=== PATIENT | male | born 1950 | race Caucasian/White ===

== ENCOUNTER 2018-03-31 07:05 | Day surgery (SDC) | payer OTHER ==
[~2018-03-31] VITALS: Ht 167.6 cm; Wt 105.9 kg
[2018-03-31] MEDS ORDERED: IOHEXOL 300 MG/ML 50 ML BTL (for RAD DIAG) IT ONE (07:06)
[2018-03-31 07:51] VITALS: BP 133/78; PULSE 66; RESP 18; TEMP 97.7; O2SAT 95
[2018-03-31] MEDS ORDERED: FISH1000 PO (08:40)
[2018-03-31] MEDS ORDERED: VITA1000 PO (08:40)
[2018-03-31] MEDS ORDERED: METF500T PO (08:40)
[2018-03-31] MEDS ORDERED: TAMS0.4C4 PO (08:40)
[2018-03-31] MEDS ORDERED: LANTUS2P SQ (08:40)
[2018-03-31] MEDS ORDERED: LEVO100T5 PO (08:40)
[2018-03-31] MEDS ORDERED: LISI10TA3 PO (08:40)
[2018-03-31] MEDS ORDERED: NOVONP2 SQ (08:41)
[2018-03-31 09:15] LABS: AUTOMATED NEUTROPHIL # 2.7 TH/MM3 (1.8-7.7); BASOPHIL % 0.6 % (0.0-2.0); EOSINOPHIL # 0.1 TH/MM3 (0-0.4); EOSINOPHIL % 1.7 % (0.0-4.0); HEMATOCRIT 42.1 % (39.0-51.0); HEMOGLOBIN 14.2 GM/DL (13.0-17.0); LYMPH % 38.7 % (9.0-44.0); LYMPHOCYTE # 2.1 TH/MM3 (1.0-4.8); MEAN CELL VOLUME 88.3 FL (80.0-100.0); MEAN CORPUSCULAR HEMOGLOBIN 29.7 PG (27.0-34.0); MEAN CORPUSCULAR HGB CONC 33.6 % (32.0-36.0); MEAN PLATELET VOLUME 8.5 FL (7.0-11.0); MONO % 9.2 % (0.0-8.0); MONOCYTE # 0.5 TH/MM3 (0-0.9); NEUT % 49.8 % (16.0-70.0); PLATELET COUNT 173 TH/MM3 (150-450); RED BLOOD COUNT 4.77 MIL/MM3 (4.50-5.90); RED CELL DISTRIBUTION WIDTH 14.3 % (11.6-17.2); WHITE BLOOD COUNT 5.3 TH/MM3 (4.0-11.0)
[2018-03-31 09:29] LABS: BICARBONATE 23.9 MEQ/L (21.0-32.0); CALCIUM 9.5 MG/DL (8.5-10.1); CREATININE 1.38 MG/DL (0.60-1.30); PROTHROMBIN TIME - PATIENT 10.2 SEC (9.8-11.6)
[2018-03-31] MEDS ORDERED: DIAZEPAM 5 MG TAB PO SCH (10:00)
[2018-03-31] MEDS ORDERED: LACTATED RINGER'S 1000 ML INJ 1,000 ML IV SCH ×2 (10:00→11:05)
[2018-03-31] MEDS ORDERED: LORazepam 2 MG/ML VIAL IV PUSH ONE (10:00)
--- NOTE | 2018-03-31 11:06 | PD.RAD ---
Post Procedure Progress Note Procedure Date: Mar 31, 2018 Supervising Radiologist: Anders Castro Proceduralist/Assist: Celso Freedman RT(R), Other Anesthesia: Local Plan of Activity Patient to Unit: [facility] Patient Condition: Good See PACS Report for procedural detail/treatment Anders Castro MD Mar 31, 2018 11:06
[2018-03-31 11:30] VITALS: BP 124/77; PULSE 50; RESP 16; RESP 18; TEMP 97.6; O2SAT 95
--- NOTE | 2018-03-31 11:52 | RADRPT ---
EXAM DATE: 03/31/2018 11:31 AM EDT AGE/SEX: 67 years / Male INDICATIONS: Post lumbar myelogram. CLINICAL DATA: This is the patient's initial encounter. Patient reports that signs and symptoms have been present for 1 day and indicates a pain score of 4/10. MEDICAL/SURGICAL HISTORY: Diabetes. None. RADIATION DOSE: 36.83 CTDI (mGy) COMPARISON: No prior exams available for comparison. CT of the lumbar spine was performed post myelogram. TECHNIQUE: Contiguous axial images were acquired with a multirow detector CT scanner without contras t. Multiplanar reconstructions in the sagittal and coronal plane were also performed. Using automate d exposure control and adjustment of the mA and/or kV according to patient size, radiation dose was k ept as low as reasonably achievable to obtain optimal diagnostic quality images. DICOM format image data is available electronically for review and comparison. FINDINGS: Sagittal and coronal reformatted images demonstrate adequate alignment of the lumbar vertebral bodies . There are desiccated, degenerated discs throughout. There is contrast throughout the thecal sac. The paraspinous soft tissues visualized are unremarkable. Axial imaging: T12/L1: The thecal space and foramina are adequate. There is osteophytic ridging from the anterior as pect of the vertebral endplates. L1/L2: There is degeneration of the disc with minimal disc bulge. The thecal space and foramina appea r adequate. The facet joints are intact. There is a large osteophytic spur projecting off the right s brooklynn of the endplates in the far lateral region. L2/L3: There is a degenerated disc with broad-based disc bulge and diffuse osteophytic ridging. There is mild facet arthritis bilaterally with degenerative facet and ligamentous hypertrophy. These kennedy es combine and result in a mild degree of spinal stenosis with moderate bilateral foraminal encroachm ent. L3-4: There is a desiccated, degenerated disc with broad-based disc bulge. There is mild facet arthri tis bilaterally with degenerative facet and ligamentous hypertrophy. There is disc protrusion evident projecting into the lateral recess and effacing the base of the foramina on the left. There is mild foraminal encroachment on the right. L4-5: There is a broad-based disc bulge and mild facet arthritis bilaterally. There is slight encroac hment of disc bulge on the lateral recess and base of the foramina. The residual thecal space is narr owed but adequate. L5-S1: The exam demonstrates a degenerated disc with minimal disc bulge and diffuse osteophytic ridgi ng. This is slightly eccentric towards the right. The residual thecal space and foramina appear adequ ate. There is mild facet arthritis bilaterally. CONCLUSION: 1. Moderate degenerative changes throughout the lumbar spine. The most significant abnormality is a sizable left-sided disc protrusion at the L3-4 level. 2. Individual levels are dictated in detail above. Electronically signed by: Ke Melchor MD 03/31/2018 11:50 AM EDT
--- NOTE | 2018-03-31 11:56 | RADRPT ---
EXAM DATE: 03/31/2018 11:37 AM EDT AGE/SEX: 67 years / Male INDICATIONS: Post cervical myelogram. CLINICAL DATA: This is the patient's initial encounter. Patient reports that signs and symptoms have been present for 1 day and indicates a pain score of 4/10. MEDICAL/SURGICAL HISTORY: Diabetes. None. RADIATION DOSE: 26.41 CTDI (mGy) COMPARISON: No prior exams available for comparison. TECHNIQUE: Contiguous axial images were obtained using helical multirow detector technique. The vol umetric data was post-processed with multiplanar reconstruction in oblique axial, sagittal, and coron al planes. Using automated exposure control and adjustment of the mA and/or kV according to patient s ize, radiation dose was kept as low as reasonably achievable to obtain optimal diagnostic quality karol ges. FINDINGS: Intrathecal contrast is seen. Vertebrae: Normal vertebral body height. Alignment: There is 2 mm of anterior subluxation of C2 on C3 otherwise the cervical vertebral bodies are normally aligned. C2-3: Again noted is the mild anterior subluxation of C2 on C3. This is thought to be secondary to f acet hypertrophy. Some degree of suspected fusion at the right facet joint. The right facet hypertrop hy causes minimal narrowing of the right neural foramina. The left neural foramina is patent. C3-4: The bony spinal canal is normal in size. The contrast is less dense anteriorly. There appears to be possible mild right lateral recess disc protrusion. There is mild facet hypertrophy. Mild anter ior osteophytes are seen. C4-5: There is mild asymmetric disc bulge being worse on the right. This causes a very mild impressi on on the anterior aspect of the thecal sac. There continues be CSF around the cord. The neural daniel gaurav are patent bilaterally. There is right facet hypertrophy. Anterior marginal osteophytes are seen. C5-6: The disc demonstrates decreased height. There is mild diffuse disc bulge and osteophytic ridgi ng and patient appears to be more focal central disc protrusion causing a moderate impression on the chest but the thecal sac. Minimal CSF seen around the cord. The cord does appear mildly indented cent rally. There is uncovertebral hypertrophy. There is mild narrowing of the neural foramina bilaterally from the uncovertebral hypertrophy. C6-7: The bony spinal canal is normal in size. No evidence of disc bulge or herniation. Mild margin al osteophytes are seen. There is bilateral uncovertebral hypertrophy. There is mild neural foraminal narrowing being worse on the left. Anterior marginal osteophytes are seen. C7-T1: The bony spinal canal is normal in size. The disc demonstrates decreased height. There is mi nimal disc bulge and osteophytic ridging without significant stenosis. There is mild facet hypertroph y. The neural foramina are bilaterally patent. CONCLUSION: 1. Moderate stenosis at the C5-C6 level caused by disc bulge and osteophytic ridging and a superimpo sed central disc protrusion. 2. Suspected mild right lateral recess disc protrusion at the C3-C4 level. 3. Mild anterior subluxation of C3 on C4. 4. Uncovertebral hypertrophy at the C5-C6 and C6-C7 levels with neural foraminal narrowing. There is also right neural foraminal narrowing at the C2-C3 level. Electronically signed by: Theo Valdes MD 03/31/2018 11:55 AM EDT
--- NOTE | 2018-03-31 13:16 | RADRPT ---
EXAM DATE: 03/31/2018 11:18 AM EDT AGE/SEX: 67 years / Male INDICATIONS: Patient presents with cervical and lumbar radiculopathy in need of myelogram for furthe r evaluation. CLINICAL DATA: This is the patient's initial encounter. Patient reports that signs and symptoms have been present for > 1 year and indicates a pain score of 6/10. MEDICAL/SURGICAL HISTORY: . DMHTNRenal failureFormer smoker . Bilateral carpal tunnel Knee krishna geryThroat surgery COMPARISON: No prior exams available for comparison. FLUORO TIME (min): 1.0 IMAGE SERIES: 3 ACCESS SITE: L3-4 LUMBAR PUNCTURE TIME: 10:36 hours CONTRAST (cc): 15 Omnipaque (iohexol) 300 . . PROCEDURE: 1. Fluoroscopic guided lumbar puncture. 2. Instillation of intrathecal contrast. 3. Lumbar myelogram. 4. Cervical myelogram. The risks, benefits and alternatives to the procedure were explained and verbal and written consent w as obtained. The site was prepped in sterile fashion. Full sterile technique was used, including ca p, mask, sterile gloves and gown and a large sterile sheet. Hand hygiene and 2% chlorhexidine and/or betadine/alcohol prep was utilized per protocol for cutaneous antisepsis. The skin and subcutaneous tissues were infiltrated with local anesthetic solution. With fluoroscopic guidance the lumbar thecal sac was punctured at level above and a diagnostic quanti ty of contrast is present in the subarachnoid space. Following the lumbar radiographs contrast was pl aced in the cervical region under fluoroscopic guidance. The patient tolerated procedure well and there were no complications. CT scan is to be performed for further evaluation. CONCLUSION: 1. Uncomplicated lumbar and cervical myelogram as above. CT scan is to be performed for further katie luation. Electronically signed by: Anders Castro MD 03/31/2018 1:15 PM EDT
== END 2018-03-31 14:50 | disposition home or self-care (01) ==
LOC: HROP 07:05 → HRIP 07:06 → HROP 14:50
PROVIDERS: ATTEND Neurological Surgery
DX: M51.26 Other intervertebral disc displacement, lumbar region (principal); M48.02 Spinal stenosis, cervical region; M50.222 Other cervical disc displacement at C5-C6 level; M54.12 Radiculopathy, cervical region; I10 Essential (primary) hypertension; E11.9 Type 2 diabetes mellitus without complications; Z79.4 Long term (current) use of insulin
CPT/HCPCS: 62305; 72125; 72131; 80048; 85025; 85610; 85730; Q9967